=== PATIENT | male | born 1980 | race Caucasian/White ===

== ENCOUNTER 2019-04-23 11:03 | Day surgery (SDC) | payer OTHER ==
[2019-04-23] VITALS (13 sets, daily range): BP systolic 112–138; BP diastolic 66–82; PULSE 74–90; RESP 6–16; Ht 182.9 cm; Wt 85.9 kg
[~2019-04-23] VITALS: Ht 182.9 cm; Wt 85.9 kg
[2019-04-23] MEDS ORDERED: LACTATED RINGER'S 1,000 ML IV SCH (12:30)
[2019-04-23] MEDS ORDERED: SURGIFOAM POWDER 1 GM KIT ONE (13:09)
[2019-04-23] MEDS ORDERED: THROMBIN 5000 UNIT VIAL ONE (13:09)
[2019-04-23] MEDS ORDERED: GELATIN SIZE 100 SPONGE ONE (13:09)
[2019-04-23] MEDS ORDERED: BUPIVACAINE 0.25%/EPI (SDV) 30 ML INJ ONE (13:10)
[2019-04-23] MEDS ORDERED: POLYMYXIN/BACITRACIN 1L IRRIG ONE (13:10)
--- NOTE | 2019-04-23 13:16 | HPN ---
Date/Time of Note Date/Time of Note DATE: 04/23/19 TIME: 13:15 Interval H&P Admission Note Pt. seen H&P reviewed: No system changes Right L4-5 microdiskectomy JACOBY MONGE MD Apr 23, 2019 13:16
--- NOTE | 2019-04-23 13:39 | PREAC ---
Date/Time of Note Date/Time of Note DATE: 04/23/19 TIME: 13:37 Anesthesia Eval and Record Evaluation Time Pre-Procedure Interview DATE: 04/23/19 TIME: 13:37 Age 38 Sex male NPO: 8 hrs Preoperative diagnosis Lumbar L4-5 Herniated Disc Planned procedure Lumbar L4-5 Microdisectomy and Decompression Past Medical History Past Medical History: None Surgery & Anesthesia Issues No known issue Meds Anticoagulation: No Beta Gianna within 24 hr: No Reason Beta Gianna not given: Pt. not on B-Gianna No Active Prescriptions or Reported Meds Current Medications Lactated Ringer's 1,000 ml @ 30 mls/hr Q24H IV ; Start 04/23/19 at 12:30 Meds reviewed: Yes Allergies Coded Allergies: No Known Allergy (Unverified , 04/23/19) Allergies Reviewed: Yes Labs/Studies Labs Reviewed: Reviewed by anesthesiologist Blood Bank Test 04/23/19 12:10 Antibody Screen NEGATIVE Blood Type O POSITIVE test: N/A Studies: ECG (n/a), CXR (n/a) Pre-procedure Exam Last vitals Vital Signs Date Temp Pulse Resp B/P (MAP) Pulse Ox O2 O2 Flow FiO2 Time Delivery Rate 04/23/19 97.7 75 16 121/78 99 12:17 (92) Airway: Adequate mouth opening, Adequate thyromental dist Mallampati: Mallampati II Teeth: Normal Lung: Normal Heart: Normal ASA Physical Status ASA physical status: 2 Emergency: None Planned Anesthetic General/MAC: ETT Planned Pain Management Parenteral pain med Pre-operative Attestations Prior to commencing anesthesia and surgery, the patient was re-evaluated, there was verification of: *The patient's identity *The results of appropriate recent lab work and preoperative vital signs *The above evaluation not changing prior to induction *Anesthetic plan, risk benefits, alternative and complications discussed with patient/family; questions answered; patient/family understands, accepts and wishes to proceed. BEAR HORNE MD Apr 23, 2019 13:39
--- NOTE | 2019-04-23 14:26 | PAC ---
Date/Time of Note Date/Time of Note DATE: 04/23/19 TIME: 14:26 Post-Anesthesia Notes Post-Anesthesia Note Last documented vital signs Vital Signs Date Temp Pulse Resp B/P (MAP) Pulse Ox O2 O2 Flow FiO2 Time Delivery Rate 04/23/19 97.7 75 16 121/78 99 14:17 (92) Activity: WNL Respiratory function: WNL Cardiovascular function: WNL Mental status: Baseline Pain reasonably controlled: Yes Hydration appropriate: Yes Nausea/Vomiting absent: Yes BEAR HORNE MD Apr 23, 2019 14:26
[2019-04-23] MEDS ORDERED: CEFAZOLIN 1 GM INJ ONE (14:28)
[2019-04-23] MEDS ORDERED: SUCCINYLCHOLINE CHLORIDE 100 MG/5 ML SYG IV ONE (14:28)
[2019-04-23] MEDS ORDERED: PROPOFOL 20 ML ONE (14:28)
[2019-04-23] MEDS ORDERED: MIDAZOLAM 1 MG/ML 2 ML INJ ONE (14:28)
[2019-04-23] MEDS ORDERED: ROCURONIUM 50 MG INJ ONE (14:28)
[2019-04-23] MEDS ORDERED: METOCLOPRAMIDE 10 MG INJ ONE (15:28)
[2019-04-23] MEDS ORDERED: DEXAMETHASONE 4 MG/ML 5 ML INJ ONE (15:28)
[2019-04-23] MEDS ORDERED: ONDANSETRON 4 MG INJ ONE (15:28)
[2019-04-23] MEDS ORDERED: KETOROLAC 30 MG INJ ONE (15:28)
[2019-04-23] MEDS ORDERED: SUGAMMADEX SODIUM 200 MG/2 ML VIAL IV ONE (16:46)
--- NOTE | 2019-04-23 16:49 | PDOCDIS ---
Discharge Instructions CONDITION [id number] Patient Condition: [id number] Good HOME CARE INSTRUCTIONS: [id number] Diet Instructions: [id number] Regular ACTIVITY: [id number] Activity Restrictions: [id number] Avoid heavy lifting Avoid Heavy Housework FOLLOW UP/APPOINTMENTS Follow-up Plan Follow-up with Dr. Monge in 2 weeks JACOBY MONGE MD Apr 23, 2019 16:49
--- NOTE | 2019-04-23 16:54 | OPR ---
Date/Time of Note Date/Time of Note DATE: 04/23/19 TIME: 16:51 Operative Report Free Text/Dictation DATE OF OPERATION: 04/23/2019 PREOPERATIVE DIAGNOSES: Right sided L4-L5 disk herniation with L5 radiculopathy POSTOPERATIVE DIAGNOSES: Right sided L4-L5 disk herniation with L5 radiculopathy OPERATION PERFORMED: Right L4-L5 microdiscectomy SURGEON: Jacoby Monge MD REFINERY PIPELINE OPERATOR: PRAFUL Vincent ANESTHESIA: General endotracheal ESTIMATED BLOOD LOSS: 15 mL SURGICAL INDICATION: The patient is a 38 year-old male who presents with a history of right lower extremity pain and weakness. He was found to have a disc herniation which correlated well with his symptoms. The patient had failed conservative treatment. Risks, benefits, and alternatives to microdiscectomy were explained to the patient and they wished to proceed. Risks explained included but were not exclusive of bleeding, infection, cauda equina syndrome, nerve injury, dural tear, iatrogenic instability, recurrent disc herniation, fracture, vascular injury, bowel injury, stroke, heart attack and pulmonary embolism. DESCRIPTION OF TECHNIQUE: The patient was identified in the preoperative area and taken to the operating room. Rapid induction of general endotracheal anesthesia was performed. The patient was given 2 g of cefazolin for prophylaxis. The patient was then placed in the prone position on the Kaiden frame on a Claudio flat top table with all prominences well padded. The back was prepped and draped in the usual sterile manner. Using a spinal needle and intraoperative fluoroscopy, the appropriate level was clearly identified (L4- L5). The skin was injected using 0.25% Marcaine with epinephrine. Longitudinal midline incision was then created using a 10 blade. Further dissection through soft tissue was performed using electrocautery down to the spinous processes. The dissection was taken down the right side of the lamina and over the facet joint capsule. A self-retaining retractor was applied. Again, intraoperative fluoroscopy confirmed the appropriate level. The microscope was brought into use for microdissection. A small portion of the caudal aspect of the cephalad lamina was resected using a high-speed bur. A series of Kerrison rongeurs were then used to resect the ligamentum flavum. The dura and traversing nerve root were both directly visualized. These were retracted gently in a medial direction. Immediately, the extruded disc fragment was noted. The pseudo anulus was incised using an 11 blade. Several loose fragments of disk were removed. These were removed back to a stable portion of the disk. The disk space was further pressurized using a using normal saline through a syringe to ensure that no loose fragments remained behind. Palpation with a ball-tip probe did not reveal any further stenosis. The traversing L5 nerve root was noted to be significantly decompressed. Meticulous attention was paid towards hemostasis using FloSeal as well as Gelfoam and thrombin. Care was taken to remove all FloSeal and Gelfoam prior to wound closure. The fascia was then closed using 0 Vicryl in an interrupted fashion. Subcutaneous tissue was closed using 2-0 Vicryl in an interrupted fashion. The skin was closed using a running 4-0 Monocryl stitch. The wound was dressed using Dermabond and a 4x4 sterile gauze. The patient was returned to the supine position. He was extubated immediately postoperatively and taken to the recovery room in stable condition. COMPLICATIONS: None. Procedure Date: Apr 23, 2019 Preoperative Diagnosis Right sided L4-L5 disk herniation with L5 radiculopathy Postoperative Diagnosis Right sided L4-L5 disk herniation with L5 radiculopathy Operation/Procedure Performed Right L4-L5 microdiscectomy Surgeon see signature line Plant Protection Guard PRAFUL Vincent Anesthesia Type: general Estimated Blood Loss: 10 - 50 ml's Transfusion none Specimen L4-5 disk Grafts/Implants none Complications none Pt Condition Post Procedure: stable Disposition: PACU Procedure Description DESCRIPTION OF TECHNIQUE: The patient was identified in the preoperative area and taken to the operating room. Rapid induction of general endotracheal anesthesia was performed. The patient was given 2 g of cefazolin for prophylaxis. The patient was then placed in the prone position on the Kaiden frame on a Claudio flat top table with all prominences well padded. The back was prepped and draped in the usual sterile manner. Using a spinal needle and intraoperative fluoroscopy, the appropriate level was clearly identified (L4- L5). The skin was injected using 0.25% Marcaine with epinephrine. Longitudinal midline incision was then created using a 10 blade. Further dissection through soft tissue was performed using electrocautery down to the spinous processes. The dissection was taken down the right side of the lamina and over the facet joint capsule. A self-retaining retractor was applied. Again, intraoperative fluoroscopy confirmed the appropriate level. The microscope was brought into use for microdissection. A small portion of the caudal aspect of the cephalad lamina was resected using a high-speed bur. A series of Kerrison rongeurs were then used to resect the ligamentum flavum. The dura and traversing nerve root were nadya th directly visualized. These were retracted gently in a medial direction. Immediately, the extruded disc fragment was noted. The pseudo anulus was incised using an 11 blade. Several loose fragments of disk were removed. These were removed back to a stable portion of the disk. The disk space was further pressurized using a using normal saline through a syringe to ensure that no loo se fragments remained behind. Palpation with a ball-tip probe did not reveal any further stenosis. The traversing L5 nerve root was noted to be significantly decompressed. Meticulous attention was paid towards hemostasis using FloSeal as well as Gelfoam and thrombin. Care was taken to remove all FloSeal and Gelfoam prior to wound closure. The fascia was then closed using 0 Vicryl in an interrupted fashion. Subcutaneous tissue was closed using 2-0 Vicryl in an interrupted fashion. The skin was closed using a running 4-0 Monocryl stitch. The wound was dressed using Dermabond and a 4x4 sterile gauze. The patient was returned to the supine position. He was extubated immediately postoperatively and taken to the recovery room in stable condition. JACOBY MONGE MD Apr 23, 2019 16:54
[2019-04-23] MEDS ORDERED: HYDROCODONE/APAP (5/325) TAB PO PRN ×2 (17:00)
[2019-04-23] MEDS ORDERED: ONDANSETRON 4 MG INJ IV PRN ×2 (17:00→17:30)
[2019-04-23] MEDS ORDERED: PROCHLORPERAZINE 10 MG TAB PO PRN (17:00)
[2019-04-23] MEDS ORDERED: ACETAMINOPHEN 325 MG TAB PO PRN (17:00)
[2019-04-23] MEDS ORDERED: NALOXONE (0.4 MG/ML) INJ IV PRN (17:00)
[2019-04-23] MEDS ORDERED: AL HYDROX/MG HYDROX/SIMETH 30 ML CUP PO PRN (17:00)
[2019-04-23] MEDS ORDERED: NACL 0.9% 3 ML SYG IV SCH (17:00)
--- NOTE | 2019-04-23 17:06 | PAC ---
Date/Time of Note Date/Time of Note DATE: 04/23/19 TIME: 17:06 Post-Anesthesia Notes Post-Anesthesia Note Last documented vital signs Vital Signs Date Temp Pulse Resp B/P (MAP) Pulse Ox O2 O2 Flow FiO2 Time Delivery Rate 04/23/19 98.7 17:04 04/23/19 75 16 121/78 99 12:17 (92) Activity: WNL Respiratory function: WNL Cardiovascular function: WNL Mental status: Baseline Pain reasonably controlled: Yes Hydration appropriate: Yes Nausea/Vomiting absent: Yes BEAR HORNE MD Apr 23, 2019 17:06
[2019-04-23] MEDS ORDERED: LABETALOL HCL 20MG INJ IV PRN (17:30)
[2019-04-23] MEDS ORDERED: OXYCODONE/ACETAMINOPHEN (5/325) TAB PO PRN (17:30)
[2019-04-23] MEDS ORDERED: METOCLOPRAMIDE 10 MG INJ IV PRN (17:30)
[2019-04-23] MEDS ORDERED: HYDROmorphONE 1 MG/5 ML IV SYRINGE IV PRN ×3 (17:30)
[2019-04-23] MEDS ORDERED: FENTAnyl 50 MCG/ML VIAL IV PRN ×2 (17:30)
[2019-04-23] MEDS ORDERED: hydrALAzine 20 MG INJ IV PRN (17:30)
[2019-04-23] MEDS ORDERED: EPHEDrine 25 MG/5 ML SYG IV PRN (17:30)
[2019-04-24] MEDS ORDERED: DOCUSATE SODIUM 100 MG CAP PO SCH (09:00)
== END 2019-04-23 18:51 | disposition home or self-care (01) ==
LOC: SDS 11:03
PROVIDERS: ATTEND Orthopaedic Surgery
DX: M51.16 Intervertebral disc disorders with radiculopathy, lumbar region (principal)
CPT/HCPCS: 63030; 72114; 86850; 86900; 86901; J0690; J1100; J1170; J1885; J2250; J2405; J2765; J3010; 88304